=== PATIENT | male | born 1965 | race Caucasian/White ===

== ENCOUNTER 2017-08-30 15:41 | Observation (INO) | payer BC ==
--- NOTE | 2017-08-30 16:41 | EDPHY ---
H & P Time Seen by Provider: 08/30/17 16:40 HPI/ROS: CHIEF COMPLAINT: Double vision HISTORY OF PRESENT ILLNESS: The 52-year-old man has a history of migraine headaches which often has what he describes as "prismy vision" but states today was different. He was [place] [address] at 3:10 p.m. when he suddenly felt like "my eyes were crossed "and he had double vision. He was exerting himself moderately hard and symptoms lasted for about 15 min. He did not have associated headache or neck pain or trouble with his balance or strength or sensation in his extremities. Symptoms are almost gone now but he feels like his vision isn't 100% back to normal. States it was definitely binocular as at resolved when he covered a single eye. REVIEW OF SYSTEMS: Eye: HPI ENT: no sore throat Cardiac: no chest pain or syncope Pulmonary: no cough or SOB Abdomen: no vomiting, diarrhea, abdominal pain Musculoskeletal: no back pain Skin: no rash Neuro: HPI Constitutional: no fever : no urinary symptoms A comprehensive 10 point review of systems is otherwise negative aside from elements mentioned in the history of present illness. PAST MEDICAL HISTORY: Negative Social history: here with General Appearance: Alert and conversant, cooperative. Eyes: No scleral icterus. Extraocular motion intact and pupils are reactive. ENT, Mouth: Normal mucous membranes. Respiratory: Normal respiratory effort, breath sounds equal, lungs are clear to auscultation. Cardiovascular: Regular rate and rhythm. Gastrointestinal: Abdomen is soft and non tender. Neurological: Alert and oriented x3. Normally conversant. Face symmetric, normal movement and sensation in all extremities. No pronator drift and finger- to-nose normal bilaterally. Skin: Warm and dry, no rashes. Musculoskeletal: No peripheral edema and no joint swelling. Psychiatric: Not agitated. Emergency Department course/MDM: Neurology consult on the phone Dr. Louie 0840; recommends CT and CTA, EKG, and Admission for TIA workup. 1903: Marj negative head CT. 1922: normal CTA per Marj. Results discussed with patient, also discussed Neurology recommendation for admission and TIA workup. He is agreeable. Smoking Status: Never smoked Constitutional: Initial Vital Signs Temperature (C) 36.5 C 08/30/17 15:46 Heart Rate 90 08/30/17 15:46 Respiratory Rate 16 08/30/17 15:46 Blood Pressure 151/100 H 08/30/17 15:46 O2 Sat (%) 94 08/30/17 15:46 O2 Delivery Mode Room Air Allergies/Adverse Reactions: No Known Allergies Allergy (Unverified 08/30/17 15:45) Home Medications: Medication Instructions Recorded Albuterol [Ventolin Hfa Inhaler] 2 puffs IH DAILY PRN 08/30/17 Cetirizine [ZyrTEC 10 mg (*)] 10 mg PO HS 08/30/17 Medical Decision Making - Diagnostics EKG Interpretation: 12-lead EKG interpreted by me; official reading is in trace master. My interpretation is sinus rhythm rate 64 no ischemic changes. Imaging Results: Imaging Impressions Head CT 08/30/17 16:59 Impression: There is no acute or cranial abnormality identified on this unenhanced CT evaluation. If there is further clinical concern regarding the patient's symptoms, MR imaging is suggested, if not otherwise contraindicated. Findings were discussed with CHIP BROUSSARD MD at 19:03, on 08/30/2017. Head CTA 08/30/17 16:59 Impression: 1. There is no hemodynamic significant ICA stenosis. 2. Patent vertebral arteries. CT ANGIOGRAPHY OF THE BRAIN: The major vessels of the [place] well visualized, and there is no aneurysm, vascular malformation, flow-limiting stenosis, or acute occlusion identified. The distal cervical, petrous, cavernous , and supraclinoid portions of the internal carotid arteries are patent. There is some minimal calcific plaque associated with the parasellar aspects of the internal carotid arteries which are mildly tortuous along their course. The A1 and A2 segments are patent as are the M1, M2, and M3 trifurcation vessels. With regards to the posterior circulation, the distal vertebral arteries are patent. The posterior inferior cerebellar arteries, vertebrobasilar confluence, basilar artery, superior cerebellar arteries, and the posterior cerebral arteries are patent. The posterior communicating artery is atretic on the left, and congenitally hypoplastic on the right. The superior sagittal sinus, transverse sinuses, and major veins demonstrate no evidence of intraluminal thrombi. Impression: Negative CT angiogram of the brain. CT Source Data: There are some minor dependent changes seen posteriorly in the lung bases. The visualized superior mediastinal structures are normal. The prevertebral soft tissues are normal. The cervical vertebral body heights and posterior alignments are maintained. Measurement of carotid stenosis is based on the residual internal carotid diameter with [place] Symptomatic Carotid Endarterectomy Trial (NASCET) based stenosis levels. Findings were discussed with CHIP BROUSSARD MD at 19:22, on 08/30/2017. Neck CTA 08/30/17 17:00 Impression: 1. There is no hemodynamic significant ICA stenosis. 2. Patent vertebral arteries. CT ANGIOGRAPHY OF THE BRAIN: The major vessels of the [place] well visualized, and there is no aneurysm, vascular malformation, flow-limiting stenosis, or acute occlusion identified. The distal cervical, petrous, cavernous , and supraclinoid portions of the internal carotid arteries are patent. There is some minimal calcific plaque associated with the parasellar aspects of the internal carotid arteries which are mildly tortuous along their course. The A1 and A2 segments are patent as are the M1, M2, and M3 trifurcation vessels. With regards to the posterior circulation, the distal vertebral arteries are patent. The posterior inferior cerebellar arteries, vertebrobasilar confluence, basilar artery, superior cerebellar arteries, and the posterior cerebral arteries are patent. The posterior communicating artery is atretic on the left, and congenitally hypoplastic on the right. The superior sagittal sinus, transverse sinuses, and major veins demonstrate no evidence of intraluminal thrombi. Impression: Negative CT angiogram of the brain. CT Source Data: There are some minor dependent changes seen posteriorly in the lung bases. The visualized superior mediastinal structures are normal. The prevertebral soft tissues are normal. The cervical vertebral body heights and posterior alignments are maintained. Measurement of carotid stenosis is based on the residual internal carotid diameter with [place] Symptomatic Carotid Endarterectomy Trial (NASCET) based stenosis levels. Findings were discussed with CHIP BROUSSARD MD at 19:22, on 08/30/2017. Differential Diagnosis: Differential for double vision considered including but not limited to intracranial mass, occipital stroke, migraine, atypical seizure, intracranial aneurysm Consult/Admit Bed Type: [place] [address] - Data Points Laboratory Results: Laboratory Results 08/30/17 17:38 08/30/17 17:38 12 12 12 17:38 17:38 17:38 WBC 6.47 10^3/uL 10^3/uL (3.80-9.50) RBC 4.83 10^6/uL 10^6/uL (4.40-6.38) Hgb 15.2 g/dL g/dL (13.7-17.5) POC Hgb Hct 43.8 % % (40.0-51.0) POC Hct MCV 90.7 fL fL (81.5-99.8) MCH 31.5 pg pg (27.9-34.1) MCHC 34.7 g/dL g/dL (32.4-36.7) RDW 12.0 % % (11.5-15.2) Plt Count 160 10^3/uL 10^3/uL (150-400) MPV 10.3 fL fL (8.7-11.7) Neut % (Auto) 66.8 % % (39.3-74.2) Lymph % (Auto) 26.4 % % (15.0-45.0) [place] % (Auto) 5.4 % % (4.5-13.0) Eos % (Auto) 0.8 % % (0.6-7.6) Baso % (Auto) 0.3 % % (0.3-1.7) Nucleat RBC Rel Count 0.0 % % (0.0-0.2) Absolute Neuts (auto) 4.32 10^3/uL 10^3/uL (1.70-6.50) Absolute Lymphs (auto) 1.71 10^3/uL 10^3/uL (1.00-3.00) Absolute Monos (auto) 0.35 10^3/uL 10^3/uL (0.30-0.80) Absolute Eos (auto) 0.05 10^3/uL 10^3/uL (0.03-0.40) Absolute Basos (auto) 0.02 10^3/uL 10^3/uL (0.02-0.10) Absolute Nucleated RBC 0.00 10^3/uL 10^3/uL (0-0.01) Immature Gran % 0.3 % % (0.0-1.1) Immature Gran # 0.02 10^3/uL 10^3/uL (0.00-0.10) PT 13.4 SEC SEC (12.0-15.0) INR 1.00 (0.83-1.16) POC Sodium Sodium 144 mEq/L mEq/L (134-144) POC Potassium Potassium 3.8 mEq/L mEq/L (3.5-5.2) POC Chloride Chloride 104 mEq/L mEq/L (97-110) Carbon Dioxide 25 mEq/l mEq/l (22-31) Anion Gap 15 mEq/L mEq/L (8-16) POC BUN BUN 14 mg/dL mg/dL (7-23) Creatinine 0.9 mg/dL mg/dL (0.7-1.3) POC Creatinine Estimated GFR > 60 Glucose 95 mg/dL mg/dL (70-100) POC Glucose Calcium 9.4 mg/dL mg/dL (8.5-10.4) 08/30/17 17:34 WBC RBC Hgb POC Hgb 15.3 gm/dL gm/dL (13.7-17.5) Hct POC Hct 45 % % (40-51) MCV MCH MCHC RDW Plt Count MPV Neut % (Auto) Lymph % (Auto) [place] % (Auto) Eos % (Auto) Baso % (Auto) Nucleat RBC Rel Count Absolute Neuts (auto) Absolute Lymphs (auto) Absolute Monos (auto) Absolute Eos (auto) Absolute Basos (auto) Absolute Nucleated RBC Immature Gran % Immature Gran # PT INR POC Sodium 143 mEq/L mEq/L (134-144) Sodium POC Potassium 3.6 mEq/L mEq/L (3.3-5.0) Potassium POC Chloride 103 mEq/L mEq/L (97-110) Chloride Carbon Dioxide Anion Gap POC BUN 14 mg/dL mg/dL (7-23) BUN Creatinine POC Creatinine 1.0 mg/dL mg/dL (0.7-1.3) Estimated GFR Glucose POC Glucose 98 mg/dL mg/dL (70-100) Calcium Point of Care Test Results: 08/30/17 17:34 POC Sodium 143 POC Potassium 3.6 POC Chloride 103 POC BUN 14 POC Creatinine 1.0 POC Glucose 98 Departure - Departure Disposition: [facility] Inpatient Acute Clinical Impression: Diplopia Condition: Good
[2017-08-30] MEDS ORDERED: IOPAMIDOL (ISOVUE 370) 100 ML BTL IV ONE (17:16)
--- NOTE | 2017-08-30 17:40 | CPEKG ---
Heart Rate: 64 RR Interval: 938 P-R Interval: 168 QRSD Interval: 80 QT Interval: 416 QTC Interval: 430 P [place]: 60 QRS [place]: 2 T Wave [place]: 51 EKG Severity - NORMAL ECG - EKG Impression: SINUS RHYTHM Electronically Signed By: Philip Vasquez 30-Aug-2017 17:42:33
[2017-08-30 17:51] LABS: % IMMATURE GRANULYOCYTES 0.3 % (0.0-1.1); ABSOLUTE IMMATURE GRANULOCYTES 0.02 10^3/uL (0.00-0.10); ADD DIFF? NO; ADD MORPH? NO; ADD SCAN? NO; ATYPICAL LYMPHOCYTE FLAG 0 (0-99); FRAGMENT RBC FLAG 0 (0-99); HEMATOCRIT 43.8 % (40.0-51.0); HEMOGLOBIN 15.2 g/dL (13.7-17.5); LEFT SHIFT FLG 0 (0-99); LIPEMIA HEMOLYSIS FLAG 90 (0-99); MEAN CELL HEMOGLOBIN 31.5 pg (27.9-34.1); MEAN CELL HEMOGLOBIN CONCENTR. 34.7 g/dL (32.4-36.7); MEAN CELL VOLUME 90.7 fL (81.5-99.8); MEAN PLATELET VOLUME 10.3 fL (8.7-11.7); PLATELET CLUMPS FLAG 10 (0-99); PLATELET COUNT 160 10^3/uL (150-400); RED BLOOD CELL COUNT 4.83 10^6/uL (4.40-6.38)
[2017-08-30 18:00] LABS: PROTIME(PATIENT) 13.4 SEC (12.0-15.0)
[2017-08-30 18:03] LABS: ANION GAP 15 mEq/L (8-16); CALCIUM 9.4 mg/dL (8.5-10.4); CARBON DIOXIDE 25 mEq/l (22-31); CHLORIDE 104 mEq/L (97-110); CREATININE 0.9 mg/dL (0.7-1.3); GLOMERULAR FILTRATION RATE > 60; GLUCOSE 95 mg/dL (70-100); POTASSIUM 3.8 mEq/L (3.5-5.2); SODIUM 144 mEq/L (134-144)
[2017-08-30] MEDS ORDERED: ONDANSETRON 4 MG/2 ML VIAL IVP PRN (22:09)
[2017-08-30] MEDS ORDERED: ONDANSETRON DISINTEGRATING 4 MG TAB PO PRN (22:09)
[2017-08-30] MEDS ORDERED: ACETAMINOPHEN 325 MG TAB PO PRN (22:09)
--- NOTE | 2017-08-30 23:40 | PDGENHP ---
History and Physical - Chief Complaint Double vision - History of Present Illness 52 yo M w/ hx of migraines and seasonal allergies presents after episode of diplopia. Patient was hiking today when he developed acute double vision. This would resolve if he covered either eye. The symptom was intense for about 15 minutes and slowly resolved over the course of an hour. He had to ask a bystander to help him off the trail and drive him to a hospital. He denies numbness, weakness, disequilibrium, or poor coordination. At the time of my evaluation patient was asymptomatic. Of note, he does have a history of migraines with visual auras but states that these symptoms were much different. His auras usually are subtle and peripheral , whereas these symptoms were severe and encompassed his full visual field. History Information - Allergies/Home Medication List Allergies/Adverse Reactions: No Known Allergies Allergy (Unverified 08/30/17 15:45) Home Medications: Albuterol [Ventolin Hfa Inhaler] 2 puffs IH DAILY PRN 08/30/17 [Last Taken 08/24] Cetirizine [ZyrTEC 10 mg (*)] 10 mg PO HS 08/30/17 [Last Taken 08/29/17 22:00] I have personally reviewed and updated: family history, medical history - Past Medical History migraines - Family History Positive for: stroke - Social History Smoking Status: Never smoked Review of Systems Review of Systems: ROS: 10pt was reviewed & negative except for what was stated in HPI & below Physical Exam Physical Exam: Temp Pulse Resp BP Pulse Ox 36.5 C 75 14 137/90 H 94 08/30/17 15:46 08/30/17 21:25 08/30/17 21:25 08/30/17 21:25 08/30/17 21:25 Constitutional: no apparent distress, not in pain Eyes: PERRL, EOMI Ears, Nose, Mouth, Throat: moist mucous membranes, no oral mucosal ulcers Cardiovascular: regular rate and rhythym, no murmur, rub, or gallop Respiratory: no respiratory distress, clear to auscultation Gastrointestinal: normoactive bowel sounds, soft, non-tender abdomen Skin: warm, no rashes or abrasions Musculoskeletal: full muscle strength, no muscle tenderness Neurologic: AAOx3, sensation intact bilaterally, CN II-XII Intact, other (NIHSS 0), No weakness, No numbness, No facial droop Psychiatric: interacting appropriately, not anxious Lab Data & Imaging Review 08/30/17 17:38 08/30/17 17:38 WBC 6.47 10^3/uL (3.80-9.50) 08/30/17 17:38 RBC 4.83 10^6/uL (4.40-6.38) 08/30/17 17:38 Hgb 15.2 g/dL (13.7-17.5) 08/30/17 17:38 POC Hgb 15.3 gm/dL (13.7-17.5) 08/30/17 17:34 Hct 43.8 % (40.0-51.0) 08/30/17 17:38 POC Hct 45 % (40-51) 08/30/17 17:34 MCV 90.7 fL (81.5-99.8) 08/30/17 17:38 MCH 31.5 pg (27.9-34.1) 08/30/17 17:38 MCHC 34.7 g/dL (32.4-36.7) 08/30/17 17:38 RDW 12.0 % (11.5-15.2) 08/30/17 17:38 Plt Count 160 10^3/uL (150-400) 08/30/17 17:38 MPV 10.3 fL (8.7-11.7) 08/30/17 17:38 Neut % (Auto) 66.8 % (39.3-74.2) 08/30/17 17:38 Lymph % (Auto) 26.4 % (15.0-45.0) 08/30/17 17:38 [place] % (Auto) 5.4 % (4.5-13.0) 08/30/17 17:38 Eos % (Auto) 0.8 % (0.6-7.6) 08/30/17 17:38 Baso % (Auto) 0.3 % (0.3-1.7) 08/30/17 17:38 Nucleat RBC Rel Count 0.0 % (0.0-0.2) 08/30/17 17:38 Absolute Neuts (auto) 4.32 10^3/uL (1.70-6.50) 08/30/17 17:38 Absolute Lymphs (auto) 1.71 10^3/uL (1.00-3.00) 08/30/17 17:38 Absolute Monos (auto) 0.35 10^3/uL (0.30-0.80) 08/30/17 17:38 Absolute Eos (auto) 0.05 10^3/uL (0.03-0.40) 08/30/17 17:38 Absolute Basos (auto) 0.02 10^3/uL (0.02-0.10) 08/30/17 17:38 Absolute Nucleated RBC 0.00 10^3/uL (0-0.01) 08/30/17 17:38 Immature Gran % 0.3 % (0.0-1.1) 08/30/17 17:38 Immature Gran # 0.02 10^3/uL (0.00-0.10) 08/30/17 17:38 PT 13.4 SEC (12.0-15.0) 08/30/17 17:38 INR 1.00 (0.83-1.16) 08/30/17 17:38 POC Sodium 143 mEq/L (134-144) 08/30/17 17:34 Sodium 144 mEq/L (134-144) 08/30/17 17:38 POC Potassium 3.6 mEq/L (3.3-5.0) 08/30/17 17:34 Potassium 3.8 mEq/L (3.5-5.2) 08/30/17 17:38 POC Chloride 103 mEq/L (97-110) 08/30/17 17:34 Chloride 104 mEq/L (97-110) 08/30/17 17:38 Carbon Dioxide 25 mEq/l (22-31) 08/30/17 17:38 Anion Gap 15 mEq/L (8-16) 08/30/17 17:38 POC BUN 14 mg/dL (7-23) 08/30/17 17:34 BUN 14 mg/dL (7-23) 08/30/17 17:38 Creatinine 0.9 mg/dL (0.7-1.3) 08/30/17 17:38 POC Creatinine 1.0 mg/dL (0.7-1.3) 08/30/17 17:34 Estimated GFR > 60 08/30/17 17:38 Glucose 95 mg/dL (70-100) 12 17:38 POC Glucose 98 mg/dL (70-100) 08/30/17 17:34 Calcium 9.4 mg/dL (8.5-10.4) 08/30/17 17:38 Imaging Review: CTA head and neck without clear abnormality. Visualized and Interpreted EKG results: Yes EKG Interpretation: Positive for: normal sinsus rhythm, NS ST wave abnormalities Assessment & Plan Assessment: 52 yo M w/ hx of migraines presents with acute diplopia, now resolved, possibly representing a TIA. Plan: 1. Diplopia - Possibly represents a TIA noting severity, acute onset, and slow resolution. Other considerations include migraine (although this is different than previous episodes) and acute vertiginous episode, although this seems less likely. CTA of head and neck unremarkable and asymptomatic at this time. - MRI brain, TTE w/ bubble for further evaluation - Monitor on telemetry - Check lipid panel, A1c - Will start ASA 81 mg qD and Atorvastatin 40 mg qD for secondary prevention - Neurology consult placed Diet - Regular Code - Full Ppx - SCDs Dispo - Admit to observation status
[2017-08-31 04:19] VITALS: TEMP 98
[2017-08-31 04:41] LABS: % IMMATURE GRANULYOCYTES 0.5 % (0.0-1.1); ABSOLUTE IMMATURE GRANULOCYTES 0.03 10^3/uL (0.00-0.10); ADD DIFF? NO; ADD MORPH? NO; ADD SCAN? NO; ATYPICAL LYMPHOCYTE FLAG 20 (0-99); FRAGMENT RBC FLAG 0 (0-99); HEMATOCRIT 41.8 % (40.0-51.0); HEMOGLOBIN 14.7 g/dL (13.7-17.5); LEFT SHIFT FLG 0 (0-99); LIPEMIA HEMOLYSIS FLAG 90 (0-99); MEAN CELL HEMOGLOBIN 31.5 pg (27.9-34.1); MEAN CELL HEMOGLOBIN CONCENTR. 35.2 g/dL (32.4-36.7); MEAN CELL VOLUME 89.5 fL (81.5-99.8); MEAN PLATELET VOLUME 10.2 fL (8.7-11.7); PLATELET CLUMPS FLAG 0 (0-99); PLATELET COUNT 158 10^3/uL (150-400); RED BLOOD CELL COUNT 4.67 10^6/uL (4.40-6.38)
[2017-08-31 04:58] LABS: ALANINE AMINOTRANSFERASE 41 IU/L (21-72); ALBUMIN 3.7 g/dL (3.5-5.0); ALKALINE PHOSPHATASE 51 IU/L (38-126); ANION GAP 13 mEq/L (8-16); ASPARTATE AMINOTRANSFERASE 20 IU/L (17-59); BILIRUBIN,TOTAL 0.9 mg/dL (0.1-1.4); CARBON DIOXIDE 24 mEq/l (22-31); CHLORIDE 106 mEq/L (97-110); CHOLESTEROL 150 mg/dL (140-220); CHOLESTEROL/HDL RATIO 3.66 RATIO (1.00-4.97); CREATININE 0.9 mg/dL (0.7-1.3); GLOMERULAR FILTRATION RATE > 60; GLUCOSE 91 mg/dL (70-100); HIGH DENSITY LIPOPROTEIN 41 mg/dL (40-65); LDL/HDL RATIO 2.17 RATIO (1.00-3.64); LOW DENSITY LIPOPROTEIN 89 mg/dL (80-100); NON-HIGH DENSITY LIPOPROTEIN 109 mg/dL (90-129); POTASSIUM 3.6 mEq/L (3.5-5.2); SODIUM 143 mEq/L (134-144); TOTAL PROTEIN 5.9 g/dL (6.3-8.2); TRIGLYCERIDE 103 mg/dL (40-150); VERY LOW DENSITY LIPOPROTEINS 20 mg/dL (8-25)
[2017-08-31 08:11] VITALS: PULSE 68; RESP 16
[2017-08-31] MEDS ORDERED: ATORVASTATIN CALCIUM 40 MG TAB PO SCH (09:00)
[2017-08-31] MEDS ORDERED: ASPIRIN 81 MG CHEWABLE TAB PO SCH (09:00)
[2017-08-31 09:22] LABS: HEMOGLOBIN A1C 5.7 % (4.0-6.0)
[2017-08-31] MEDS ORDERED: NON-FORMULARY NEW DRUG (Albuterol 2 PUFFS) IH PRN (10:53)
[2017-08-31] MEDS ORDERED: ALBUTEROL 60 PUFFS/8 GM MDI IH PRN (11:03)
[2017-08-31 11:22] VITALS: BP 128/88; O2SAT 92
--- NOTE | 2017-08-31 11:55 | ASMTCMCOM ---
CM Note CM Note Notes: 08/31/2017 Case Management Plan Reviewed chart. There are no case management d/c needs identified d/t pt age, marital status, employment status and activity levels prior to admission. There are no PT or OT evals ordered at this time. Case Management d/c poc: home independent when medically stable with follow up as directed. Case Management available if needs change. Date Signed: 08/31/2017 11:54 AM Electronically Signed By:Ruth Orozco RN
--- NOTE | 2017-08-31 12:53 | NEUROPROG ---
Assessment: [id number] CC: Dr. Boss consulted neurology for double vision. Results placed in EMR for review. HPI: Pt admitted to [facility] on 08/30/17 for transient binocular double vision that was intense for 15 min then resolved over an hour. Occurred while hiking. Pt found to have normal neuro exam in ER. Pt admitted for stroke evaluation. I saw pt on 08/31/17. Hx of migraines. Brain MRI performed and showed pending brain MRI. PMHx: migraines Meds: alb, cetirizine SHx: no tobacco FHx: stroke ROS: Pt denied acute fever, total vision loss, active severe chest pain, respiratory failure, total body severe rash, total bowel/bladder incontinence, psychosis, active seizures, or active bleeding O: VS reviewed General: Alert Eyes: Fundoscopic exam not able to visualize optic disks CV: Heart RRR, no murmur, no carotid bruit Lungs: Clear to auscultation bilaterally, no rhonci or rales Neuro: - Mental: . Oriented x person/place/date . concentration appears normal . speech fluency/comprehension normal . memory appears normal . fund of knowledge appear intact - Cranial Nerves: . II: PERRL, VFFTC . III/IV/: EOMI, no nystagmus, normal smooth pursuits, no Ptosis . V: facial sensation intact to LT . VII: face symmetric to eye closure and smile . VIII: hearing intact to conversation . IX/X: uvula raises symmetrically . XI: SCM 5/5 B/L strength . XII: tongue protrudes midline w/nl strength - Motor: . Tone: normal tone in all 4 extrem . Strength: no pronator drift, strength 5/5 throughout (B/L delt, bic, tri, hand lead sustainability specialist, hf/he, df/pf) - Reflexes: B/L bic/BR/patella 2/4 - Sensory: all 4 extrem intact to light touch - Coord: [id number] wnl, HANS wnl, [id number] wnl - Gait: deferred - NIH SS 0 Labs: 08/31/17- CBC wnl, CMP wnl, LDL 89, H1AC pending Rads: 08/30/17- Head CT: unremarkable (I personally visualized images on 08/31/17) 08/30/17- CTA head/neck: unremarkable 08/31/17- Brain MRI w/o con: pending formal read, per my review it appears generally normal w/o acute stroke Assessment: 1. Transient Diplopia: Normal neurologic exam on 08/31/17. If brain MRI is normal then I feel this was likely an atypical migraine given he reported symptoms lasted 1 hour so it would be unusual to have ischemia for 1 hour w/o stroke on MRI. Plan: - Start ASA 81 mg qd in case this was a TIA but low concern for TIA - F/U in neurology clinic 1-4 weeks after discharge If brain MRI unremarkable than patient can discharge from a neurology perspective. Objective: Vital Signs Temp Pulse Resp BP Pulse Ox 36.7 C 68 16 128/88 H 92 08/31/17 04:17 08/31/17 11:15 08/31/17 11:15 08/31/17 11:15 08/31/17 11:15 Laboratory Results 08/31/17 04:09 08/31/17 04:09 PT 13.4 SEC (12.0-15.0) 08/30/17 17:38 INR 1.00 (0.83-1.16) 08/30/17 17:38 Allergies/Adverse Reactions: No Known Allergies Allergy (Unverified 08/30/17 15:45)
--- NOTE | 2017-08-31 13:13 | ECHO ---
[email or web address] [address] [address] Main: [phone] Fax: [email or web address] Echocardiogram Name: CLOVIS HALEY MR#: [id number] Study Date: 08/31/2017 Study Time: 08:21 AM Date of : 1965 Age: 52 year(s) Height: 172.7 cm (68 in.) Weight: 78.02 kg (172 lb.) BSA: 1.92 m2 Gender: Male Examination: Echo with Agitated Saline Indication: TIA; bubble study Image Quality: Adequate Contrast: I.V. dose of agitated saline Requested by: Nader Tony BP: / Heart Rate: Rhythm: Normal sinus rhythm Indication: TIA; bubble study Procedure Staff Med Care Manager: Nyla Ceja Reading Physician: Neto Kessler Requesting Provider: Conclusions: Normal size left ventricle. No LV hypertrophy. Normal global systolic LV function. EF is 73 %. The left atrium is normal in size. An agitated saline study was performed and was negative for intracardiac shunting. Mitral Valve: The mitral valve is normal in appearance and function. Mild mitral valve regurgitation is present. The aortic valve is normal in appearance and function. The tricuspid valve is normal in appearance and function. Trivial to mild tricuspid valve regurgitation. The pulmonary artery pressure is normal. Normal size aortic root measuring 2.9 cm. Normal size ascending aorta measuring 3.3 cm. Measurements: Chambers Valvular Assessment AV/MV Valvular Assessment TV/PV Normal Normal Normal Name Value Range Name Value Range Name Value Range Ao Anni (MM): 2.9 cm (2.2 cm-3.7 AV Vmax: 1.02 m/s (1 m/s-1.7 TR Vmax: 2.32 mm/s ( - ) cm) m/s) TR PGmax: 22 mmHg ( - ) IVSd (2D): 0.9 cm (0.6 cm-1.1 AV maxP mmHg ( - ) syst. PAP: 27 mmHg ( - ) cm) LVOT Vmax: 1.06 m/s (0.7 m/s-1.1 PV Vmax: 0.86 m/s (0.6 m/s-0.9 LVDd (2D): 4.0 cm (4.2 cm-5.9 m/s) m/s) cm) MV E Vmax: 0.64 m/s ( - ) PV PGmax: 3 mmHg ( - ) LVDs (2D): 2.6 cm (2.1 cm-4 MV A Vmax: 0.38 m/s ( - ) cm) MV E/A: 1.68 ( - ) LVPWd (2D): 1.0 cm (0.6 cm-1 cm) Patient: CLOVIS HALEY Study Date: 08/31/2017 Page 1 of 2 08:21 AM LVEF (BP): 73 % (>=55 %) RVDd(2D): 2.9 cm (1.9 cm-3.8 cmmm) Continued Measurements: Chambers Valvular Assessment AV/MV Valvular Assessment TV/PV Name Value Name Value Name Value LADs Lon.6 cm MV DecTime: 254 m/s CVP (est.): 5 mmHg LA Area: 12.4 cm2 LA Volume: 41 ml LA Volume Index: 21.4 ml/m2 RA Area: 16.4 cm2 Additional Vessels Name Value Ao Ascendin.3 cm Findings: Left Ventricle: Normal size left ventricle. No LV hypertrophy. Normal global systolic LV function. EF is 73 %. No regional wall motion abnormality. Normal diastolic LV function. Right Ventricle: Normal size right ventricle. Normal RV function. Left Atrium: The left atrium is normal in size. An agitated saline study was performed and was negative for intracardiac shunting. Right Atrium: The right atrium is normal in size. Mitral Valve: The mitral valve is normal in appearance and function. Mild mitral valve regurgitation is present. No mitral stenosis is present. Aortic Valve: The aortic valve is normal in appearance and function. There is no aortic valve regurgitation. No aortic valve stenosis is present. Tricuspid Valve: The tricuspid valve is normal in appearance and function. Trivial to mild tricuspid valve regurgitation. The pulmonary artery pressure is normal. Right ventricular systolic pressure measures 27mmHg. Pulmonic Valve: The pulmonic valve is normal in appearance and function. There is no pulmonic regurgitation seen. Aorta: The aorta is normal. Normal size aortic root measuring 2.9 cm. Normal size ascending aorta measuring 3.3 cm. Pericardium: No pericardial effusion. (No Signature Object) Patient: CLOVIS HALEY Study Date: 08/31/2017 Page 2 of 2 08:21 AM [id number]
--- NOTE | 2017-08-31 18:51 | GDS ---
[f rep st] DISCHARGE SUMMARY DISCHARGE DIAGNOSES: 1. Diplopia. 2. History of migraines. CONSULTATIONS: Neurology. STUDIES AND PROCEDURES DONE: 1. CT of the head. 2. CT angio of the head. 3. CT angio of the neck. 4. MRI of the brain. 5. Echocardiogram. HOSPITAL COURSE: The patient is a 52-year-old male who presented to the emergency room with complain ts of double vision. He was evaluated and diagnosed with transient diplopia. During this hospitaliz ation, he received a consultation from Neurology. Complete evaluation was done including MRI of the brain. It is likely that this is field representative of atypical migraine versus TIA. The patient has be en initiated on aspirin. His workup has been negative during this hospital course. He will follow u p with Neurology in the outpatient setting. He is aware of his borderline elevated cholesterol and h as been following this in the outpatient with his primary care physician. It was recommended that he continue baby aspirin and follow up with Dr. Louie of Neurology for potential further treatment and m anagement of his migraines. He is in agreement with this plan. DISCHARGE MEDICATIONS: Please refer to EMR form. I have not adjusted the patient's previously presc ribed home medications with the exception of the addition of 81 mg aspirin daily. /[id number]/MODL
[2017-08-31] MEDS ORDERED: CETIRIZINE 10 MG TAB PO SCH (21:00)
--- NOTE | 2017-09-01 12:35 | ASDISCHSUM ---
Discharge Information Plan Status:Home with No Needs Medically Cleared to Leave: Discharge Date:08/31/2017 03:09 PM CM D/C Disposition:Home, Routine, Self-Care ADT D/C Disposition:Home, Routine, Self-Care Projected Discharge Date:08/31/2017 03:09 PM Transportation at D/C:Family Discharge Delay Reason: Follow-Up Date:08/31/2017 03:09 PM Discharge Slot: Final Diagnosis: Placement Information Patient Contact Information Contact Name:JOCY Relationship: Address:[address] City:[place] Alternate Phone: [facility]/Zip Code:[place] [address] Email: Financial Information Financial Class:HMO and PPO Plans Primary Plan Desc: OUT OF STATE PPO Primary Plan Number:[id number] Secondary Plan Desc: Secondary Plan Number: Assessment Information [facility] CM Progress Note CM Note CM Note Notes: 08/31/2017 Case Management Plan Reviewed chart. There are no case management d/c needs identified d/t pt age, marital status, employment status and activity levels prior to admission. There are no PT or OT evals ordered at this time. Case Management d/c poc: home independent when medically stable with follow up as directed. Case Management available if needs change. Date Signed: 08/31/2017 11:54 AM Electronically Signed By:Ruth Orozco RN Intervention Information
== END 2017-08-31 15:09 | disposition home or self-care (01) ==
LOC: F3N 21:45
PROVIDERS: ADMIT Internal Medicine; ATTEND Internal Medicine
DX: H53.2 Diplopia (principal); G43.909 Migraine, unspecified, not intractable, without status migrainosus
CPT/HCPCS: 70450; 70496; 70498; 70551; 92523; 93005; 93306; G0378; 82947-QW; Q9967